=== PATIENT | female | born 1940 | race Caucasian/White ===

== ENCOUNTER 2022-05-04 14:21 | Outpatient (CLI) | payer MEDICARE, BC | END 2022-05-04 14:22 | disposition home or self-care (01) | LOC: CSHMAMMO 14:21 | PROVIDERS: ATTEND Family Medicine | DX: Z13.820 Encounter for screening for osteoporosis (principal); Z78.0 Asymptomatic menopausal state; M85.89 Other specified disorders of bone density and structure, multiple sites | CPT/HCPCS: 77080 ==

== ENCOUNTER → 2022-12-12 | Day surgery (SDC) | payer MEDICARE, BC | LOC: CSHULT 12:24 | PROVIDERS: ATTEND Family Medicine | PROC: 0H9T3ZX Drainage of Right Breast, Percutaneous Approach, Diagnostic (ICD-10-PCS; principal; 2022-12-12) | PROC: 07B53ZX Excision of Right Axillary Lymphatic, Percutaneous Approach, Diagnostic (ICD-10-PCS; 2022-12-12) | DX: C50.411 Malignant neoplasm of upper-outer quadrant of right female breast (principal); Z17.0 Estrogen receptor positive status [ER+] | CPT/HCPCS: 19083; 38505; 88305; 88341; 88342 ==

== ENCOUNTER 2023-01-08 05:39 | Day surgery (SDC) | payer MEDICARE, BC ==
[2023-01-05 15:02] VITALS: BMI 32.8
[2023-01-08] MEDS ORDERED: EPINEPHrine 1 MG/ML VIAL ONE (06:14)
[2023-01-08] MEDS ORDERED: Bupivacaine PF 0.5% 30 ML VIAL ONE (06:14)
[2023-01-08] MEDS ORDERED: PROPOFOL 40 ML ONE (06:24)
[2023-01-08] MEDS ORDERED: fentaNYL 50 mcg/mL 1 mL Vial ONE (06:24)
[2023-01-08] MEDS ORDERED: Clindamycin/D5W 600 mg/50 ml Premix Bag ONE (06:45)
[2023-01-08] MEDS ORDERED: Acetaminophen 325 MG TAB PO PRN (07:44)
[2023-01-08] MEDS ORDERED: PROPOFOL 20 ML ONE (09:52)
[2023-01-08] MEDS ORDERED: CEFAZOLIN 1 GM VIAL ONE (09:56)
== END 2023-01-08 08:40 | disposition home or self-care (01) ==
LOC: CSHSDC 05:39
PROVIDERS: ATTEND Surgery
PROC: 0JH60WZ Insertion of Totally Implantable Vascular Access Device into Chest Subcutaneous Tissue and Fascia, Open Approach (ICD-10-PCS; principal; 2023-01-08)
DX: C50.911 Malignant neoplasm of unspecified site of right female breast (principal); I25.10 Atherosclerotic heart disease of native coronary artery without angina pectoris; I12.9 Hypertensive chronic kidney disease with stage 1 through stage 4 chronic kidney disease, or unspecified chronic kidney disease; N18.9 Chronic kidney disease, unspecified; J45.909 Unspecified asthma, uncomplicated; Z87.891 Personal history of nicotine dependence; Z88.0 Allergy status to penicillin; Z91.040 Latex allergy status; Z90.49 Acquired absence of other specified parts of digestive tract
CPT/HCPCS: 36561; 71045; C1788; J0171; J3010; J0690; J1642; J2704; J3490; S0020

== ENCOUNTER 2023-08-21 14:26 | Outpatient (CLI) | payer MEDICARE | END 2023-08-21 14:27 | disposition home or self-care (01) | LOC: CSHMAMMO 14:26 | PROVIDERS: ATTEND Internal Medicine Hematology & Oncology | DX: M85.80 Other specified disorders of bone density and structure, unspecified site (principal); Z78.0 Asymptomatic menopausal state; T38.6X5A Adverse effect of antigonadotrophins, antiestrogens, antiandrogens, not elsewhere classified, initial encounter | CPT/HCPCS: 77080 ==

== ENCOUNTER 2023-12-28 12:33 | Outpatient (CLI) | payer MEDICARE | END 2023-12-28 12:34 | disposition home or self-care (01) | LOC: CSHULT 12:33 | PROVIDERS: ATTEND Internal Medicine Hematology & Oncology | DX: C50.111 Malignant neoplasm of central portion of right female breast (principal); I42.7 Cardiomyopathy due to drug and external agent; Z79.899 Other long term (current) drug therapy; Z79.69 Long term (current) use of other immunomodulators and immunosuppressants; I51.9 Heart disease, unspecified | CPT/HCPCS: 93306 ==

== ENCOUNTER 2024-02-22 13:00 | Outpatient (CLI) | payer MEDICARE | END 2024-02-22 13:01 | disposition home or self-care (01) | LOC: CSHMAMMO 13:00 | PROVIDERS: ATTEND Surgery | DX: Z08 Encounter for follow-up examination after completed treatment for malignant neoplasm (principal); Z85.3 Personal history of malignant neoplasm of breast | CPT/HCPCS: 76642; 77066; G0279 ==

== ENCOUNTER 2025-02-24 08:54 | Day surgery (SDC) | payer MEDICARE ==
[2025-02-16 13:29] VITALS: BMI 25.1
[2025-02-24] MEDS ORDERED: Sevoflurane 250 ML INH ANEST BOTTLE ONE (10:18)
[2025-02-24] MEDS ORDERED: Lidocaine 1% w/Epinephrine 1:200K 30 ML VIAL ONE (10:18)
[2025-02-24] MEDS ORDERED: CEFAZOLIN 2 GM VIAL ONE (10:18)
[2025-02-24] MEDS ORDERED: Rocuronium Bromide 10 MG/ML (10ML VIAL) ONE (10:47)
[2025-02-24] MEDS ORDERED: SUGAMMADEX SODIUM 200 MG/2 ML VIAL ONE (10:47)
[2025-02-24] MEDS ORDERED: Lidocaine 1% PF 5 ML VIAL ONE (10:47)
[2025-02-24] MEDS ORDERED: Ondansetron PF 4 MG/2 ML Vial ONE (10:47)
[2025-02-24] MEDS ORDERED: PROPOFOL 20 ML ONE (10:47)
[2025-02-24] MEDS ORDERED: HYDROcodone/Acetaminophen 5/325 mg Tablet ONE (14:33)
== END 2025-02-24 14:50 | disposition home or self-care (01) ==
LOC: CSHSDC 08:54
PROVIDERS: ATTEND Otolaryngology
PROC: 0GBR0ZZ Excision of Parathyroid Gland, Open Approach (ICD-10-PCS; principal; 2025-02-24)
DX: E21.0 Primary hyperparathyroidism (principal); Z88.0 Allergy status to penicillin; Z91.040 Latex allergy status; Z90.49 Acquired absence of other specified parts of digestive tract
CPT/HCPCS: 60500; 83970; 93005; J1100; J2405; J2704; J3010; 36415; 93010